=== PATIENT | female | born 1980 | race Caucasian/White ===

== ENCOUNTER → 2020-08-28 07:29 | Outpatient (CLI) | payer BC, SELFPAY ==
--- NOTE | ~2020-08-28 | US_ITS ---
EXAMINATION: US OB transvaginal DATE: 08/28/2020 07:48 INDICATION: First trimester dating TECHNIQUE: Real-time pelvic transabdominal and transvaginal ultrasound was performed. COMPARISON: No relevant recent studies FINDINGS: The uterus measures 11.3 x 5.9 x 7.8 cm. There is an intrauterine gestational sac. There i s a 1.1 x 0.7 x 1.1 cm hypoechoic area adjacent to the gestational sac. A yolk sac is identified. Fet al heart motion is identified measuring 159 beats per minute (bpm) by M-mode Doppler. The crown rump length measures 1.3 cm , which correlates with an estimated gestational age of 7 weeks and 3 da y(s) (+/-) 5 day(s). The left ovary is not visualized however no left adnexal abnormality is seen. The right ovary measure s 2.0 x 2.3 x 2.1 cm. There is no free fluid in the pelvis. IMPRESSION: 1. Live intrauterine with an estimated gestational age of 7 weeks and 3 day(s) (+/-) 5 day( s) and an estimated delivery date of 04/13/2021. 2. Small subchronic hematoma. Reviewed, dictated and finalized at location A. LOPE SEALING MACHINE OPERATOR IMPRESSION: 1. Live intrauterine with an estimated gestational age of 7 weeks and 3 day(s) (+/-) 5 day(s) and an estimated delivery date of 04/13/2021. 2. Small subchronic hematoma.
== END ==
PROVIDERS: Visit Provider Obstetrics & Gynecology Gynecology
DX: O26.21 Pregnancy care for patient with recurrent pregnancy loss, first trimester (principal); Z3A.01 Less than 8 weeks gestation of pregnancy
CPT/HCPCS: 76817

== ENCOUNTER → 2020-09-18 08:47 | Outpatient (CLI) | payer BC, SELFPAY ==
--- NOTE | ~2020-09-18 | US_ITS ---
EXAMINATION: US OB transvaginal DATE: 09/18/2020 09:13 INDICATION: Subchorionic hematoma, first trimester TECHNIQUE: Real-time pelvic transabdominal and transvaginal ultrasound was performed. COMPARISON: 08/28/2020 FINDINGS: The uterus measures 10.4 x 6.2 x 8.4 cm. There is an intrauterine gestational sac. There i s a 2.0 x 1.2 cm hypoechoic area adjacent to the gestational sac. No cardiac motion is identifi ed by M-mode Doppler. The pole measures 1.4 cm which is less than expected interval growth. The ovaries are not visualized however no adnexal abnormality is seen. There is no free fluid in the pel vis. IMPRESSION: 1. demise. Reviewed, dictated and finalized at location A. SERVICE TECHNICIAN IMPRESSION: 1. demise.
== END ==
PROVIDERS: Visit Provider Obstetrics & Gynecology Gynecology
DX: O36.8910 Maternal care for other specified fetal problems, first trimester, not applicable or unspecified (principal); O02.1 Missed abortion
CPT/HCPCS: 76817

== ENCOUNTER 2020-09-26 18:26 | Emergency (ER) | payer BC, SELFPAY ==
[2020-09-26] VITALS (11 sets, daily range): BP systolic 73–144; BP diastolic 45–93; PULSE 69–120; RESP 16–20; TEMP 36.8; O2SAT 99–100
[2020-09-26 18:53] LABS: Basophils Absolute Auto 0.1 K/mm3 (0.0-0.1); Basophils Percent Auto 0.5 % (0.2-1.2); Eosinophils Absolute Auto 0.5 K/mm3 (0-0.3); Eosinophils Percent Auto 3.8 % (0-4.4); Hematocrit 36.7 % (37.0-47.0); Hemoglobin 12.5 g/dL (12.0-15.0); Immature Granulocyte Absolute 0.03 K/mm3 (0.00-0.031); Immature Granulocyte Percent A 0.2 % (0-0.5); Lymphocytes Absolute Auto 2.46 K/mm3 (0.9-3.2); Lymphocytes Percent Auto 19.4 % (18.3-44.2); Mean Corpuscular HGB Conc 34.1 g/dl (32-36); Mean Corpuscular Hemoglobin 30.6 pg (26-34); Mean Corpuscular Volume 89.7 fl (80-100); Mean Platelet Volume 9.7 fl (7.4-10.4); Monocytes Absolute Auto 0.8 K/mm3 (0.1-0.6); Monocytes Percent Auto 6.3 % (2.6-8.5); Neutrophils Absolute Auto 8.9 K/mm3 (1.3-6.7); Neutrophils Percent Auto 69.8 % (45.5-73.1); Platelet Count Result 227 k/mm3 (150-375); Red Blood Count 4.09 M/mm3 (4.2-5.4); Red Cell Distribution Width 12.4 % (11.5-14.5); White Blood Count 12.7 K/mm3 (4.5-10.0)
--- NOTE | 2020-09-26 19:01 | ED.GENADULT ---
HPI - General Adult General Chief complaint: Vaginal Bleeding Stated complaint: possible miscarriage Time Seen by Provider: 09/26/20 18:56 Source: patient Mode of arrival: ambulatory Limitations: no limitations History of Present Illness HPI narrative: Patient is here due to excessive vaginal bleeding associated with miscarriage. Patient is a G 12 P8, this is her fourth miscarriage, all have been around 7-week jaime. She had an ultrasound last week that showed demise at approximately 7 weeks. She began having light bleeding 2 days ago, then today had a large gush that continued until she arrived here. Onset (ago): hour(s) Associated symptoms: denies other symptoms Treatments prior to arrival: none Related Data Allergies Allergy/AdvReac Type Severity Reaction Status Date / Time No Known Allergies Allergy Verified 09/26/20 21:37 Review of Systems Review of Systems: All systems reviewed & are unremarkable except as noted in HPI and below [facility] Social History Social History (Updated 09/26/20 @ 19:42 by Amanda Ledesma PA-C) Smoking status: Never smoker Alcohol intake: never Substance use: never Living arrangements: with family Gender identity (if verbalized by the patient): Female Exam Const: General: no acute distress and alert Orientation/consciousness: patient oriented x3 Resp: Effort & Inspection: normal respiratory effort Auscultation: clear to auscultation bilaterally Cardio: Rate: tachycardic Rhythm: regular rhythm GI: GI Palp: Yes Soft to palpation Auscultation: normal bowel sounds : OB/external & speculum: external exam normal, Active bleeding present, tissue present in vagina, Cervical os open and other (passed large clot, manually extracted remained of placenta.) Skin: General skin exam: normal color Psych: Mental Status: mental status grossly normal Affect: Sad affect present Course Course Emergency Course: Pt called us to the room because she felt a large clot pass. there was an approx 10X7 cm clot on the bed, the remainder was manually extracted without difficulty. POC was sent to pathology. Speculum exam: there was a small amount of bleeding and a small clot at the os. that was removed and the bleeding has slowed significantly. Approx 10 min later the patient felt faint, became hypotensive. NS bolus started. responded well to IVF. Feels much better, the bleeding has stopped. She is ready to go home. Spoke with Dr. Ha, she would like pt on Methergine 0.2 mg Q6 X 24 hrs. First dose was given here. she already has orders for serial BHCG. Vital Signs Vital signs: Vital Signs Temperature 36.8 C 09/26/20 18:29 Pulse Rate 120 H 09/26/20 18:29 Respiratory Rate 20 09/26/20 18:29 Blood Pressure 144/93 H 09/26/20 18:29 Pulse Oximetry 100 09/26/20 18:29 Temperature 36.8 C 09/26/20 18:29 Pulse Rate 120 H 09/26/20 18:29 Respiratory Rate 20 09/26/20 18:29 Blood Pressure 144/93 H 09/26/20 18:29 Pulse Oximetry 100 09/26/20 18:29 Medical Decision Making Vital Signs Vital Signs: Vital Signs Temperature 36.8 C 09/26/20 18:29 Pulse Rate 120 H 09/26/20 18:29 Respiratory Rate 20 09/26/20 18:29 Blood Pressure 144/93 H 09/26/20 18:29 Pulse Oximetry 100 09/26/20 18:29 Temperature 36.8 C 09/26/20 18:29 Pulse Rate 120 H 09/26/20 18:29 Respiratory Rate 09/26/20 18:29 Blood Pressure 144/93 H 09/26/20 18:29 Pulse Oximetry 100 09/26/20 18:29 Lab Data Result diagrams: 09/26/20 18:45 Labs: Lab Results 09/26/20 09/26/20 Range/Units 18:45 18:45 WBC 12.7 H (4.5-10.0) K/mm3 RBC 4.09 L (4.2-5.4) M/mm3 Hgb 12.5 (12.0-15.0) g/dL Hct 36.7 L (37.0-47.0) % MCV 89.7 (80-100) fl MCH 30.6 (26-34) pg MCHC 34.1 (32-36) g/dl RDW 12.4 (11.5-14.5) % Plt Count 227 (150-375) k/mm3 MPV 9.7 (7.4-10.4) fl Immature Gran % (Auto) 0.2 (0-0.5) % Neut % (Auto) 69.8 (45.5-
[2020-09-26] MEDS: SODIUM CHLORIDE 0.9% IV 1,000 ML 999 ML IV CONT (19:35)
--- NOTE | 2020-09-26 19:37 | PC.NURSE ---
Patient became pale and hypotensive. KATEY notified, orders received for bolus.
[2020-09-26] MEDS: METHYLERGONOVINE MALEATE 0.2 MG TABLET PO (21:04)
[2020-09-26] MEDS: SODIUM CHLORIDE 0.9% IV 500 ML 999 ML IV CONT (21:26)
== END 2020-09-26 22:13 | disposition home or self-care (01) ==
PROVIDERS: Emergency Provider Emergency Medicine
DX: O03.9 Complete or unspecified spontaneous abortion without complication (principal)
CPT/HCPCS: 36415; 84702; 85025; 85461; 88305; 96360; 99284; A9270; J7030; J7040

== ENCOUNTER 2020-09-27 17:24 | Day surgery (SDC) | payer BC, SELFPAY ==
[2020-09-27] VITALS (12 sets, daily range): BP systolic 107–142; BP diastolic 51–76; PULSE 78–119; RESP 16–22; TEMP 36.4–36.6; O2SAT 98–100
--- NOTE | ~2020-09-27 | US_ITS ---
US OB <=14 wk fetus w TV 09/27/2020 19:04 Indication: Evaluate for retained products of conception Procedure: High-resolution Limited obstetrical ultrasound using transabdominal and transvaginal techn ique Comparison: Ultrasound dated 09/18/2020 Findings: The endometrium is thickened and heterogeneous with associated internal vascularity. Endome trium measures 3.5 cm. Internal debris is mobile. Uterus measures 11.7 x 6.1 x 5.7 cm. Ovaries are un remarkable. Impression: 1: Thickened heterogeneous endometrium measuring up to 3.5 cm with internal vascularity and heterogen eous mobile endometrial debris. Findings compatible with retained products of conception. Reviewed, dictated and finalized at location A. STEWARD/STEWARDESS Impression: 1: Thickened heterogeneous endometrium measuring up to 3.5 cm with internal vas cularity and heterogeneous mobile endometrial debris. Findings compatible with retained products of conception.
--- NOTE | 2020-09-27 17:59 | ED.FEMALEGU ---
HPI - Female Genitourinary General Chief complaint: CORDUROY BRUSHER OPERATOR Stated complaint: Vaginal Bleeding Time Seen by Provider: 09/27/20 17:57 Source: patient Mode of arrival: ambulatory Limitations: no limitations History of Present Illness HPI Narrative: 40-year-old female She is a grandmultip On September 02 she had a ultrasound showing a viable but some time between then and September 18 there was a demise which was documented with a subsequent ultrasound Last night she started having heavy vaginal bleeding and was seen in the ED A single dose of Methergine was given and after consultation with CORDUROY BRUSHER OPERATOR she was discharged home At home she continue with bleeding which she described as being like a normal period She could not get Methergine from the pharmacy until 130 and then after taking that she had heavy bleeding and passed a grapefruit sized clot She really does not have pain and is not very lightheaded Here she again passed a similar sized clot and ultrasound and in the approximately 30 minutes since returning from there has saturated another pad so is continuing to bleed elicited complaint: vaginal bleeding Vaginal bleeding: heavy, clots and POC/tissue Related Data Allergies Allergy/AdvReac Type Severity Reaction Status Date / Time No Known Allergies Allergy Verified 09/27/20 17:45 Review of Systems Review of Systems: All systems reviewed & are unremarkable except as noted in HPI and below Constitutional: Constitutional: Denies chills, Denies fever(s), Denies headache(s) and Denies weakness Eyes: Eyes: Reports no additional eye complaints and Denies change in vision ENT: Denies headache(s), Denies epistaxis, Denies nasal congestion and Denies sore throat Cardiovascular: Cardiovascular: Denies chest pain, Denies leg edema, Denies palpitations and Denies dyspnea Respiratory: Respiratory: Denies cough, Denies dyspnea and Denies wheezing Gastrointestinal: Gastrointestinal: Denies abdominal pain, Denies diarrhea, Denies nausea and Denies vomiting Genitourinary: Genitourinary: Reports abnormal vaginal bleeding, Denies hematuria, Denies urinary frequency, Denies dysuria and Denies pelvic pain Musculoskeletal: Musculoskeletal: Denies deformity, Denies arthralgias, Denies joint swelling, Denies muscle weakness and Denies numbness Integumentary/Breasts: Skin/Breast: Denies rash and Denies wounds Neurologic: Denies headache(s), Denies focal weakness, Denies numbness and Denies weakness Psychiatric: Psychiatric: Reports no additional psychiatric complaints Endocrine: Endocrine: Denies fatigue and Denies palpitations Hematologic/Lymphatic: Hematologic/Lymphatic: Denies easy bleeding and Denies easy bruising Allergic/Immunologic: Allergic/Immunologic: Denies wheezing PMFSH Social History Social History (Updated 09/26/20 @ 19:42 by Amanda Ledesma PA-C) Smoking status: Never smoker Alcohol intake: never Substance use: never Gender identity (if verbalized by the patient): Female Exam Const: General: no acute distress, well developed, alert and awake Nutritional Appearance: well nourished Orientation/consciousness: patient oriented x3 (alert) Limitations: no limitations HENMT: Head: normocephalic and atraumatic Ears: external ears normal General nose exam: No nasal discharge present and no epistaxis Face and sinus: face symmetric Eyes: Conjunctivae: conjunctivae normal Sclera: sclerae normal EOM: EOMs intact bilaterally Neck: Neck: normal visual inspection, supple and no JVD Chest: Chest palpation & inspection: deferred Resp: Effort & Inspection: normal respiratory effort and not tachypneic Auscultation: other (BS =) Cardio: Heart sounds: no gallops GI: Inspection: normal to inspection and non-distended GI Palp: Yes Soft to palpation, No Tenderness to palpation present (GI), No Guarding due to palpation present (GI) and No Rebound tenderness present : Speculum Exam - Vagina: vag
[2020-09-27] MEDS: LACTATED RINGERS 1,000 ML 999 ML IV CONT (18:32)
[2020-09-27 18:41] LABS: Basophils Percent Auto 0.3 % (0.2-1.2); Eosinophils Absolute Auto 0.2 K/mm3 (0-0.3); Eosinophils Percent Auto 1.5 % (0-4.4); Hematocrit 29.5 % (37.0-47.0); Hemoglobin 9.7 g/dL (12.0-15.0); Immature Granulocyte Absolute 0.03 K/mm3 (0.00-0.031); Immature Granulocyte Percent A 0.3 % (0-0.5); Lymphocytes Absolute Auto 1.81 K/mm3 (0.9-3.2); Mean Corpuscular HGB Conc 32.9 g/dl (32-36); Mean Corpuscular Hemoglobin 30.8 pg (26-34); Mean Corpuscular Volume 93.7 fl (80-100); Monocytes Absolute Auto 0.5 K/mm3 (0.1-0.6); Monocytes Percent Auto 4.7 % (2.6-8.5); Neutrophils Absolute Auto 8.8 K/mm3 (1.3-6.7); Neutrophils Percent Auto 77.2 % (45.5-73.1); Platelet Count Result 208 k/mm3 (150-375); Red Blood Count 3.15 M/mm3 (4.2-5.4); Red Cell Distribution Width 12.6 % (11.5-14.5); White Blood Count 11.3 K/mm3 (4.5-10.0)
--- NOTE | 2020-09-27 20:01 | PC.NURSE ---
Report called to PACU
--- NOTE | 2020-09-27 20:21 | P.HP_ITS ---
H&P: HPI History of Present Illness Date/Time: 09/27/20 20:21 Chief Complaint: bleeding large clots Narrative: Brian Menjivar is a 40 year old [id number] with current SAB. Patient seen in ER yesterday for bleeding for known SAB. Patient d/cd home with methergine and bleeding under control. Patient had a delay in getting methergine dose and bleeding increased today passing large clots and feeling weak. Patient denies seeing any tissue. ER doctor stated evacuated orange size clots. ultrasound shows retained products of conception. [facility] Social History Social History Smoking status: Never smoker Alcohol intake: never Substance use: never Gender identity (if verbalized by the patient): Female Meds Home Medications and Allergies Home Medications Medication Instructions Recorded Confirmed Type methylergonovine [Methergine] 0.2 mg PO QID 1 Days #3 tablet 09/26/20 Rx Allergies Allergy/AdvReac Type Severity Reaction Status Date / Time No Known Allergies Allergy Verified 09/27/20 17:45 Vital Signs Vital Signs - 24 hr 09/27/20 17:27 09/27/20 19:16 09/27/20 19:20 Temperature 36.5 C Pulse Rate 114 H 96 96 Respiratory Rate 19 Blood Pressure 141/71 H 142/64 H 129/76 Pulse Oximetry 98 09/27/20 19:21 Temperature Pulse Rate 119 H Respiratory Rate Blood Pressure 114/68 Pulse Oximetry Exam : Speculum Exam - Vagina: vaginal bleeding and tissue present in vagina Speculum Exam - Cervix: Cervical os open Other: cervix 4 cm dilated with tissue present and clots. moderate bleeding. clots in toilet. H&P: Results Labs Labs: Short CBC 09/27/20 Range/Units 18:27 WBC 11.3 H (4.5-10.0) K/mm3 Hgb 9.7 L (12.0-15.0) g/dL Hct 29.5 L (37.0-47.0) % Plt Count 208 (150-375) k/mm3 Assessment and Plan Assessment and plan (1) Incomplete miscarriage: Code(s): O03.4 - Incomplete spontaneous without complication Status: Acute Assessment and Plan: Incomplete - will proceed with a suction d and c. Risk and benefits reviewed with patient in detail. (2) demise, less than 22 weeks: Status: Acute
--- NOTE | 2020-09-27 20:22 | WPDANESEPPF ---
Anes - Initial Pre Proc Eval Procedure: Operation Date: 09/27/20 20:45 Proposed Procedures p D&C Suction and Sharp - Jack Mott MD Date/Time: 09/27/20 20:22 Surgeon: Jack Mott MD Pre Op Diagnosis: Vaginal Bleeding Patient Data Age: 40 Gender: F Height: 1.6 m Weight: 86.1 kg Last Vital Signs Temp 36.5 C 09/27/20 17:27 Pulse 119 H 09/27/20 19:21 Resp 19 09/27/20 17:27 BP 114/68 09/27/20 19:21 Pulse Ox 98 09/27/20 17:27 Allergies Allergy/AdvReac Type Severity Reaction Status Date / Time No Known Allergies Allergy Verified 09/27/20 17:45 Home Medications Medication Instructions Recorded Confirmed Type methylergonovine [Methergine] 0.2 mg PO QID 1 Days #3 tablet 09/26/20 Rx Laboratory Tests 09/27/20 18:27 WBC 11.3 K/mm3 H K/mm3 (4.5-10.0) RBC 3.15 M/mm3 L M/mm3 (4.2-5.4) Hgb 9.7 g/dL L g/dL (12.0-15.0) Hct 29.5 % L % (37.0-47.0) MCV 93.7 fl fl (80-100) MCH 30.8 pg pg (26-34) MCHC 32.9 g/dl g/dl (32-36) RDW 12.6 % % (11.5-14.5) Plt Count 208 k/mm3 k/mm3 (150-375) MPV 10.0 fl fl (7.4-10.4) Immature Gran % (Auto) 0.3 % % (0-0.5) Neut % (Auto) 77.2 % H % (45.5-73.1) Lymph % (Auto) 16.0 % L % (18.3-44.2) Sharkey % (Auto) 4.7 % % (2.6-8.5) Eos % (Auto) 1.5 % % (0-4.4) Baso % (Auto) 0.3 % % (0.2-1.2) Lymph # (Auto) 1.81 K/mm3 K/mm3 (0.9-3.2) Sharkey # (Auto) 0.5 K/mm3 K/mm3 (0.1-0.6) Eos # (Auto) 0.2 K/mm3 K/mm3 (0-0.3) Baso # (Auto) 0.0 K/mm3 K/mm3 (0.0-0.1) Abs Immat Gran (auto) 0.03 K/mm3 K/mm3 (0.00-0.031) Absolute Neuts (auto) 8.8 K/mm3 H K/mm3 (1.3-6.7) Absolute Nucleated RBC 0.0 K/mm3 K/mm3 (0.0-0.012) Nucleated RBC % 0.0 % % (0.0-0.2) Patient hx anesthesia problems: none Family hx anesthesia problems: none [facility] Social History Social History (Updated 09/26/20 @ 19:42 by Amanda Ledesma PA-C) Smoking status: Never smoker Alcohol intake: never Substance use: never Gender identity (if verbalized by the patient): Female Anes - Eval Final PreProcedure Day of Procedure 09/27/20 20:22 Patient weight: obese Heart: regular rate and rhythm Lungs: clear to auscultation and normal air movement Airway: Mallampati scale class II Neurological: alert and oriented Last oral intake: 6 hours ([place]) ASA classification: II Emergent: yes Anesthetic plan: proceed Anesthesia type and monitoring: general ETT and standard monitoring Informed Consent: The patient's anesthetic plan and its attendant risks and benefits were discussed with the patient/family/POA. Questions were solicited and answers provided to the satisfaction of the patient/family/POA.
[2020-09-27] MEDS: LIDOCAINE HCL 1% LOCAL INJ 10 ML VIAL INFILTRATE (21:16)
--- NOTE | 2020-09-27 21:25 | P.OP_ITS ---
Procedure Note - Detailed Date of procedure: 09/27/20 Pre-op diagnosis: Vaginal Bleeding Post-op diagnosis: same Procedure performed: suction dilation and curettage Description of procedure: The patient was taken to the operating room and placed in a dorsal lithotomy position. A bivalve speculum was placed into the vagina. Anterior lip of the cervix was grasped with a single-tooth tenaculum cervix was injected at the 2 and 10 o'clock position with 5cc of lidocaine bilaterally. Uterus was sounded to 10cm and a curved suction. A 9mm was inserted into the vagina and suction device activated. Three passes were obtained. A sharp curet tage was performed in all 4 quadrants. And the suction device was re- inserted and passed x2. The tenaculum was removed hemostasis was assured and a bivalve speculum was removed sponge lap and needle counts were correct x2 Anesthesia: MAC and local Surgeon: Jack Mott MD Estimated blood loss (mL): 100 Drains: No Packing: No Pathology: yes Complications: None Condition: stable Disposition: observation Findings: 2 cm dilated with products of conception present.
[2020-09-27] MEDS: LACTATED RINGERS 1,000 ML 30 ML IV CONT (21:28)
--- NOTE | 2020-10-18 11:39 | WPDHPUPDATE1 ---
History and Physical Update Update Date/Time: 10/18/20 11:39 History and Physical has been reviewed, including an updated exam of the patient. There are NO changes in the patient's condition. Risks, benefits, and alternatives have been discussed and questions answered. Patient agrees to proceed with procedure.
== END 2020-09-27 23:10 | disposition home or self-care (01) ==
LOC: ANHED 17:57 → ANHSURGERY 20:07
PROVIDERS: Emergency Provider Emergency Medicine; Visit Provider Obstetrics & Gynecology
PROC: (CPT 59812; principal; 2020-09-27 20:45)
DX: O03.4 Incomplete spontaneous abortion without complication (principal)
CPT/HCPCS: 59812; 36415; 76801; 76817; 85025; 88305; 96360; 99285; A9270; J0330; J1100; J2210; J2250; J2405; J2704; J3010; J7120

== ENCOUNTER 2021-04-29 09:56 | Outpatient (CLI) | payer OTHER, SELFPAY ==
--- NOTE | ~2021-04-29 | US_ITS ---
EXAMINATION: US OB <= 14 weeks fetus DATE: 04/29/2021 10:33 INDICATION: Spotting during first trimester TECHNIQUE: Real-time pelvic transabdominal ultrasound was performed. COMPARISON: None. FINDINGS: The uterus measures 12.2 x 7.1 x 5.0 cm. There is an intrauterine gestational sac. There i s a hypoechoic area adjacent to the gestational sac which measures 2.3 x 0.7 cm. A yolk sac is identi fied. heart motion is identified measuring 116 beats per minute (bpm) by M-mode Doppler. The fe crystal crown rump length measures 6 mm , which correlates with an estimated gestational age of 6 weeks a nd 2 day(s) (+/-) 4 day(s). The left ovary is not visualized however no left adnexal abnormality is seen. The right ovary measure s 2.7 x 2.0 x 2.2 cm. There is normal vascular flow in the right ovary. There is no free fluid in the pelvis. IMPRESSION: 1. Live intrauterine with an estimated gestational age of 6 weeks and 2 day(s) (+/-) 4 day( s) and an estimated delivery date of 12/21/2021. 2. Moderate-sized subchorionic hemorrhage. Reviewed, dictated and finalized at location A. IMPRESSION: 1. Live intrauterine with an estimated gestational age of 6 weeks and 2 day(s) (+/-) 4 day(s) and an estimated delivery date of 12/21/2021. 2. Moderate-sized subchorionic hemorrhage.
== END 2021-04-29 09:57 | disposition home or self-care (01) ==
LOC: ANHIMG 10:04
PROVIDERS: Visit Provider Obstetrics & Gynecology Gynecology
DX: O26.21 Pregnancy care for patient with recurrent pregnancy loss, first trimester (principal); Z3A.01 Less than 8 weeks gestation of pregnancy; O36.8911 Maternal care for other specified fetal problems, first trimester, fetus 1
CPT/HCPCS: 76801

== ENCOUNTER → 2021-05-16 15:18 | Outpatient (CLI) | payer OTHER, SELFPAY ==
--- NOTE | ~2021-05-16 | US_ITS ---
EXAMINATION: US transvaginal DATE: 05/16/2021 15:38 INDICATION: History of miscarriage. Spotting. TECHNIQUE: Real-time transabdominal and transvaginal obstetric ultrasound. FINDINGS: Comparison ultrasound dated 04/29/2021 The uterus measures 8.8 x 5.6 x 6.9 cm. There is an intrauterine gestational sac containing a p ole which corresponds to a 7 week 0 day gestation. No heart motions detected, consistent with f etal demise. Ovaries are not visualized. IMPRESSION: 1. demise. Reviewed, dictated and finalized at location A. IMPRESSION: 1. demise.
== END ==
PROVIDERS: Visit Provider Obstetrics & Gynecology Gynecology
DX: O26.851 Spotting complicating pregnancy, first trimester (principal)
CPT/HCPCS: 76830

== ENCOUNTER → 2022-09-07 13:19 | Outpatient (CLI) | payer OTHER, SELFPAY ==
--- NOTE | ~2022-09-07 | US_ITS ---
EXAMINATION: US OB <= 14 weeks fetus DATE: 09/07/2022 13:42 INDICATION: Subchorionic hematoma during first trimester TECHNIQUE: Real-time pelvic ultrasound utilizing both a transvaginal and transabdominal probe was pe rformed. The interpreting radiologist was not present for the study. COMPARISON: None FINDINGS: The uterus measures 11.8 x 7.1 x 7.4 cm. There is an intrauterine gestational sac. A yolk sac and fe crystal pole are identified. The crown rump length measures 2.2 cm, which correlates with an estimated ge stational age of 8 weeks and 6 days. heart motion is identified measuring 172 beats per minute (bpm) by M-mode Doppler. 3.4 x 2.2 x 0.9 cm hypoechoic subchorionic hematoma along the right side of the gestational sac. The bilateral ovaries are not visualized. There is no free fluid in the pelvis. IMPRESSION: 1. Single living fetus with heart rate of 172 bpm. 2. Gestational age by ultrasound of 8 weeks 6 day(s) +/- 6 day(s) with ultrasound estimated date of delivery ([facility]) of 04/13/2023. 3. 3.4 x 2.2 x 0.9 cm subchorionic hematoma. Reviewed, dictated and finalized at location A. OSOFT ARCHITECT IMPRESSION: 1. Single living fetus with heart rate of 172 bpm. 2. Gestational age by ultrasound of 8 weeks 6 day(s) +/- 6 day(s) with ultraso und estimated date of delivery ([facility]) of 04/13/2023. 3. 3.4 x 2.2 x 0.9 cm subchorionic hematoma.
== END ==
PROVIDERS: PCP Obstetrics & Gynecology Gynecology; Visit Provider Obstetrics & Gynecology Gynecology
DX: O20.8 Other hemorrhage in early pregnancy (principal); Z3A.08 8 weeks gestation of pregnancy
CPT/HCPCS: 76801

== ENCOUNTER → 2022-10-04 09:42 | Outpatient (CLI) | payer OTHER, SELFPAY ==
--- NOTE | ~2022-10-04 | US_ITS ---
Pelvic ultrasound. Clinical History: First trimester , subchorionic hemorrhage Technique: Realtime transabdominal and transvaginal scanning of the pelvis was performed. Color flow Doppler and Doppler spectral analysis were performed. COMPARISON: 09/07/2022 Findings: The uterus is anteverted, and contains an intrauterine gestation. heart rate is 158 b pm. No subchorionic hemorrhage identified. The right ovary measures 3.7 x 3.1 x 1.7 cm. No significant right ovarian or adnexal mass is seen. The left ovary measures 4.2 x 3.3 x 3.7 cm. No significant left ovarian or adnexal mass is seen. There is no evidence of free fluid in the cul de sac. Impression: Live intrauterine gestation. heart rate is 158 bpm. No subchorionic hemorrhage identified. Reviewed, dictated and finalized at [facility]. WRAPPER Impression: Live intrauterine gestation. heart rate is 158 bpm. No subchorionic hemor rhage identified.
== END ==
PROVIDERS: PCP Obstetrics & Gynecology Gynecology; Visit Provider Obstetrics & Gynecology Gynecology
DX: O36.8910 Maternal care for other specified fetal problems, first trimester, not applicable or unspecified (principal)
CPT/HCPCS: 76815

== ENCOUNTER 2023-03-08 10:00 | Observation (INO) | payer OTHER, SELFPAY ==
[2023-03-08] VITALS (10 sets, daily range): BP systolic 123–149; BP diastolic 71–84; PULSE 90–100; BMI 42.5
--- NOTE | 2023-03-08 11:25 | OBADM ---
This patient, Brian Menjivar, admitted to the OB room OB Post 116 for observation. Patient/family oriented to hospital policies and general routines including ID bracelet, bed and alarms, visiting hours, pain management, procedures, bathroom and other care routines, personal items, smoking policy, room service/diet, and visiting hours. Patient/Family are encouraged to report perceived risks to care and to ask questions if they do not understand what they are told or what they should do.
--- NOTE | 2023-03-08 21:55 | PM.OBTRLD ---
OB - Triage/Final Diagnosis Visit Information Reason for evaluation: other ( preeclampsia with variable decelerations) Comments/Additional reasons for admission: I have assessed the risk for this patient, Brian Menjivar, and determined that she would benefit from observation care. Evaluation Vital signs: Vital Signs - 24 hr 03/08/23 10:30 03/08/23 11:00 03/08/23 11:30 Pulse Rate 94 92 97 Blood Pressure 133/72 138/78 140/74 03/08/23 12:00 03/08/23 12:30 03/08/23 13:00 Pulse Rate 99 91 92 Blood Pressure 149/84 H 128/71 131/73 03/08/23 13:30 03/08/23 14:01 03/08/23 14:30 Pulse Rate 90 100 91 Blood Pressure 139/74 123/73 135/71 03/08/23 15:00 Pulse Rate 96 Blood Pressure 140/74
== END 2023-03-08 15:15 | disposition other institution (70) ==
PROVIDERS: Admitting Provider Obstetrics & Gynecology Gynecology; Visit Provider Obstetrics & Gynecology Gynecology
DX: O14.93 Unspecified pre-eclampsia, third trimester (principal); O36.8330 Maternal care for abnormalities of the fetal heart rate or rhythm, third trimester, not applicable or unspecified; Z3A.34 34 weeks gestation of pregnancy
CPT/HCPCS: G0378; G0379

== ENCOUNTER 2023-03-26 04:57 | Inpatient (IN) | payer OTHER, SELFPAY ==
[2023-03-26] VITALS (73 sets, daily range): BP systolic 104–142; BP diastolic 54–113; PULSE 76–102; TEMP 36.1–36.6
--- NOTE | 2023-03-26 04:57 | LDADM ---
This patient, Brian Menjivar, was admitted to Labor/Delivery/Recovery 103 on 03/26/23 at 04:57. Plans for labor, pain management and were discussed with patient. Patient/family oriented to hospital policies and general routines including ID bracelet, bed and alarms, visiting hours, pain management, procedures, bathroom and other care routines, personal items, smoking policy, room service/diet and guest tray routines, infant security routines, and visiting hours. Patient/Family are encouraged to report perceived risks to care and to ask questions if they do not understand what they are told or what they should do. See OBIX for further documentation.
[2023-03-26 05:48] LABS: Basophils Percent Auto 0.3 % (0.2-1.2); Eosinophils Absolute Auto 0.3 K/mm3 (0-0.3); Eosinophils Percent Auto 2.6 % (0-4.4); Hematocrit 34.8 % (37.0-47.0); Hemoglobin 11.6 g/dL (12.0-15.0); Immature Granulocyte Absolute 0.09 K/mm3 (0.00-0.031); Immature Granulocyte Percent A 0.8 % (0-0.5); Lymphocytes Absolute Auto 2.55 K/mm3 (0.9-3.2); Lymphocytes Percent Auto 22.9 % (18.3-44.2); Mean Corpuscular HGB Conc 33.3 g/dl (32-36); Mean Corpuscular Hemoglobin 30.6 pg (26-34); Mean Corpuscular Volume 91.8 fl (80-100); Mean Platelet Volume 10.4 fl (7.4-10.4); Monocytes Absolute Auto 0.7 K/mm3 (0.1-0.6); Monocytes Percent Auto 6.2 % (2.6-8.5); Neutrophils Absolute Auto 7.5 K/mm3 (1.3-6.7); Neutrophils Percent Auto 67.2 % (45.5-73.1); Platelet Count Result 271 k/mm3 (150-375); Red Blood Count 3.79 M/mm3 (4.2-5.4); Red Cell Distribution Width 14.3 % (11.5-14.5); White Blood Count 11.1 K/mm3 (4.5-10.0)
[2023-03-26 05:53] LABS: Alanine Aminotransferase 17 U/L (6-35); Albumin Level 3.5 g/dL (3.5-5.1); Alkaline Phosphatase 128 U/L (38-126); Anion Gap 4 mmol/L (8-16); Aspartate Amino Transferase 22 U/L (14-36); Bilirubin,Total 0.4 mg/dL (0.2-1.3); Blood Urea Nitrogen 9 mg/dL (7-17); Calcium 8.5 mg/dL (8.4-10.2); Carbon Dioxide 22 mmol/L (22-30); Chloride 108 mmol/L (98-107); Estimated Glomerular Filt Rate > 60; Glucose 93 mg/dL (65-110); Potassium 3.4 mmol/L (3.4-5.0); Sodium 134 mmol/L (137-145)
[2023-03-26] MEDS: AMPICILLIN 2 GM/NS 100 ML 2 GM/100 ML BAG IVPB (05:53)
[2023-03-26] MEDS: LACTATED RINGERS 1,000 ML 125 ML IV CONT ×2 (05:56→18:18)
[2023-03-26] MEDS: OXYTOCIN 30 UNITS/NS 500 ML 30 UNITS/500 ML BAG IV CONT (06:16)
[2023-03-26] MEDS: AMPICILLIN 1 GM/NS 50 ML 1 GM/50 ML BAG IVPB ×3 (10:04→18:15)
--- NOTE | 2023-03-26 12:21 | WPDOBADMIT ---
Obstetrics - Admit Note Admission Note: record reviewed. No pertinent additions to the history and/or any subsequent changes in the physical findings that are not consistent with the expected course of the were found. Additions to the history and/or subsequent changes in the physical findings follow. Here at 37 wks for MIL for preeclampsia. BP stable. No symptoms. Cervix 3/50/-2 AROM with clear fluid. FHTs category I
[2023-03-26 14:19] LABS: Rapid Plasma Reagin Non-Reactive (NonReactive)
--- NOTE | 2023-03-26 22:07 | PM.OBPRVD ---
OB - Delivery Note Procedure Delivery date: 03/26/23 Procedure: by RN into bed 30 sec before my arrival in the room Events: Preeclampsia w/o severe features Induction method: AROM and Per Pitocin Protocol Delivery monitor: External FHT and Internal Uterine Route of delivery: Laceration Description: Periurethral and Perineal - 1st Degree Delivery repair: vicryl (3-0) Specimen: Yes (placenta) Quantitative Blood Loss (ml): 100 Anesthesia type: Local Disposition: Floor Narrative: Called for update and called back by RN at 910pm with patient 5-6 cm stretchy and starting to feel contractions more. Called as I was pulling into drive at 950 pm by RN stating patient anterior rim and being delivered by RN. On my arrival to the room, infant being placed on maternal abdomen. [place] Baby Date of : 03/26/23 Weeks of gestation at delivery: 37 gender: Female Weight (pounds): 6 Weight (ounces): 15 presentation: vertex Placenta delivery description: Spontaneous (marginal instertion with cord avulsing as it was delivering) Cord Vessel Description: 3 Vessels and Nuchal Cord score one minute: 7 score five minutes: 9
--- NOTE | 2023-03-26 22:12 | PM.OBDSVD ---
DS: Admitting Diagnosis Discharge Date 03/28/23 Admitting Diagnosis IUP 37 wks with preeclampsia MIL DS: Discharge Diagnosis Discharge Diagnosis (1) Preeclampsia: Code(s): O14.90 - Unspecified pre-eclampsia, unspecified trimester Status: Acute (2) (normal spontaneous vaginal delivery): Code(s): O80 - Encounter for full-term uncomplicated delivery Status: Acute OB - DS: Summary OB Procedures : NST, PIH Mgmt and Ultrasound OB Procedures Intrapartum: Spontaneous Vag Delivery (tray delivery aide) OB Procedures: : None Peripartum Data Infant Delivery Method: Natural Vaginal Laceration Description: Periurethral and Perineal - 1st Degree complications: none Status at Discharge Functional status at discharge: independent ambulation Overall status at discharge: patient is progressing back to baseline Time Spent with Patient Time attestation: Total time spent providing and/or coordinating discharge services: DS: Data Data Completed and Pending Labs on day of discharge: Labs from last 24 hours 03/26/23 05:38 WBC 11.1 H RBC 3.79 L Hgb 11.6 L Hct 34.8 L MCV 91.8 MCH 30.6 MCHC 33.3 RDW 14.3 Plt Count 271 MPV 10.4 Immature Gran % (Auto) 0.8 H Neut % (Auto) 67.2 Lymph % (Auto) 22.9 [place] % (Auto) 6.2 Eos % (Auto) 2.6 Baso % (Auto) 0.3 Lymph # (Auto) 2.55 [place] # (Auto) 0.7 H Eos # (Auto) 0.3 Baso # (Auto) 0.0 Abs Immat Gran (auto) 0.09 H Absolute Neuts (auto) 7.5 H Absolute Nucleated RBC 0.0 Nucleated RBC % 0.0 Sodium 134 L Potassium 3.4 Chloride 108 H Carbon Dioxide 22 Anion Gap 4 L BUN 9 Creatinine 0.40 L Estim Creat Clear Calc Not Reportable Estimated GFR > 60 Glucose 93 Uric Acid 4.0 Calcium 8.5 Total Bilirubin 0.4 AST 22 ALT 17 Alkaline Phosphatase 128 H Total Protein 7.0 Albumin 3.5 RPR Non-reactive Blood Type AB Positive Antibody Screen Negative Discharge Plan Discharge Attending physician on discharge: Maritza Ha Discharging Clinician: Cynthia Hooker Anticipated Discharge Date/Time: 03/28/23 22:13 Patient Disposition: Home, Self-Care Activity: may shower and pelvic rest Diet: regular Wound Care Instructions: follow printed instructions Discharge Instructions: Continue taking your vitamin and any other supplements as previously directed (Examples: Iron, Vitamin D). You may take Tylenol 1000mg over the counter every 6 hours as needed for pain. Do not exceed 4000mg of Tylenol daily. You may continue using tucks pads and dermoplast spray if needed for a few more days. Education: Mom and Baby Guide Given to: Mother Follow-Up: Call your delivering provider's office for an appointment to be seen in: in 1 week for blood pressure check and then again in 6 weeks Mom and baby should come to the [facility] for the follow-up appointment. Appointment Date/Time: March 30, 2023 at 11:00 am What to expect at your follow-up visit: Blood Pressure Check Physical Assessment Call [phone] if you are unable to keep your appointment time. BREAST CARE: * Wear a snug supportive bra. * For engorgement discomfort: Breast Feeding: * Apply warm moist washcloths * Express milk as needed to relieve engorgement * Wear loose clothing * For sore nipples: * Identify correct latch-on * Apply warm moist washcloths before and after nursing * Air dry nipples after nursing * May apply Lansinoh cream to nipples EPISIOTOMY/PERINEAL CARE: * Until bleeding stops, use your danielle bottle after urinating * Change your pad frequently throughout the day * You may take sitz baths several times a day (fill your bathtub with warm water and soak for 20 minutes.) Do NOT bathe in the water * No tub baths until seen by your physician - You may shower ACTIVITY: * Rest as much as possible. * Do
[2023-03-26] MEDS: OXYTOCIN 30 UNITS/NS 500 ML 30 UNITS/500 ML BAG 125 UNITS IV CONT (22:25)
[2023-03-26] MEDS: IBUPROFEN 600 MG TABLET PO (23:36)
[2023-03-27] VITALS (9 sets, daily range): BP systolic 101–133; BP diastolic 56–72; PULSE 77–87; RESP 14–18; TEMP 36.2–37.2; O2SAT 96–99
[2023-03-27 04:03] LABS: Hematocrit 32.4 % (37.0-47.0); Hemoglobin 10.7 g/dL (12.0-15.0)
[2023-03-27] MEDS: IBUPROFEN 600 MG TABLET PO ×4 (05:29→23:55)
--- NOTE | 2023-03-27 08:07 | PM.OBPNVD ---
OB - PN: Subj Subjective Date/time seen: 03/27/23 08:07 Patient comments: no complaints and pain well controlled baby status: doing well OB - PN: Obj Data Labs 03/27/23 03:47 03/26/23 05:38 Labs: Laboratory Results - last 24 hr 03/26/23 03/27/23 05:38 03:47 Hgb 10.7 L Hct 32.4 L Uric Acid 4.0 RPR Non-reactive OB - PN A/P Plan day: 1 Plan: routine care Comments: No PIH sx. Good BP. No diuresis yet Time Spent With Patient Time: Total time spent is greater than 50% in coordination of care (as documented) at patient's floor/unit and/or counseling patient:
[2023-03-27] MEDS: MULTIVIT/MIN/PREN/FOL AC/IRON TABLET 1 TAB PO (08:25)
[2023-03-27] MEDS: DOCUSATE SODIUM 100 MG CAPSULE PO (08:25)
[2023-03-27] MEDS: LANOLIN (LANSINOH) 7.5 GM CREAM 1 APPLIC TOPICAL (08:26)
--- NOTE | 2023-03-27 15:47 | PC.NURSE ---
1450 - Mother verbalizes she is able to independently latch with appropriate positioning/alignment. She denies any nipple discomfort and is responsively . Infant is currently meeting outcomes for weight, output, jaundice and feeding frequencies of 8-12 times in 24 hours. Mother declines any additional assistance/education at this time. Mother is encouraged to call for assistance if her doesn?t latch or there is discomfort with latching. Mother voiced understanding of information shared.
--- NOTE | 2023-03-27 18:53 | PC.NURSE ---
Patient viewed the discharge video Mother & Baby Care, The First Two Weeks . Patient was given the opportunity and encouraged to ask questions. Patient verbalized understanding of information shared and has been given the mother/baby guide for home reference.
[2023-03-28 05:50] VITALS: BP 119/73; PULSE 72
[2023-03-28] MEDS: IBUPROFEN 600 MG TABLET PO ×2 (05:55→13:19)
--- NOTE | 2023-03-28 07:58 | P.PNOB_ITS ---
OB - PN: Subj Subjective Date/time seen: 03/28/23 07:52 Interval history: PPD 2 from . Doing well. Minimal discomfort while nursing. Patient comments: pain well controlled [place] baby status: doing well and nursing well [place] feeding status: exclusively breast feeding OB - PN: Obj Data Labs 03/27/23 03:47 03/26/23 05:38 OB - PN A/P Assessment and Plan (1) (normal spontaneous vaginal delivery): Code(s): O80 - Encounter for full-term uncomplicated delivery Status: Acute (2) Preeclampsia: Code(s): O14.90 - Unspecified pre-eclampsia, unspecified trimester Status: Acute (3) Mother currently breast-feeding: Code(s): Z39.1 - Encounter for care and examination of lactating mother Status: Acute Plan day: 2 Plan: discharge home Time Spent With Patient Time: Total time spent is greater than 50% in coordination of care (as documented) at patient's floor/unit and/or counseling patient: Review of Systems Review of Systems: All systems reviewed & are unremarkable except as noted in HPI and below Exam Narrative: Alert and oriented. Mood is pleasant and cooperative. Urinating without difficulty. Denies passing any large clots. Perineum with minimal edema. Fundus firm and below umbilicus. Const: General: cooperative, healthy appearing, no acute distress and alert Orientation/consciousness: patient oriented x3 Limitations: no limitations Resp: Effort & Inspection: normal respiratory effort Auscultation: clear to auscultation bilaterally Cardio: Rate: regular rate GI: Inspection: normal to inspection Neuro: General: patient oriented x3 Extrem: General: normal to inspection Psych: Appearance: grossly normal Mental Status: mental status grossly normal Affect: normal affect Thought process: Normal thought process present
[2023-03-28 08:20] VITALS: BP 133/78; PULSE 79; RESP 16; TEMP 36.8; O2SAT 99
[2023-03-28] MEDS: DOCUSATE SODIUM 100 MG CAPSULE PO (08:25)
[2023-03-28] MEDS: MULTIVIT/MIN/PREN/FOL AC/IRON TABLET 1 TAB PO (08:25)
--- NOTE | 2023-03-28 10:53 | PM.OBPNLAB ---
Pain Control Date/time seen: 03/28/23 10:40 Pain control: tolerating well Pelvic Exam Dilation (cm): 5 Amniotic membrane status: Ruptured Contractions Monitor mode: Internal Contraction frequency: 4 Contraction pattern: Regular Status status: Category ll Assessment and Plan Pitocin rate (mU/min): 0 Plan: continuous present management Comments: Community Relations Advisor called to evaluate presentation. SVE performed. Cervix found to be 5 cm and mostly unchanged. Able to feel very small amount of presenting part but unable to determine consistency of that part. Station has changed since last exam and now -4. Ultrasound to bedside. Fetus verified vertex presentation. Pitocin off at this time due to recent decelerations. Tracing now category 1. Plan to pause the amnio infusion and proceed with epidural per pt request. Assisted patient to sitting on the side of the bed and able to trace FHTs externally. Will defer FSE for now. Recommend upright positioning after epidural when able. If tracing remains reassuring, we will restart Pitocin as needed to achieve adequate contraction pattern. Dr. Ha updated.
[2023-03-30 11:26] VITALS: BP 137/80; PULSE 82; RESP 18; TEMP 37.2; O2SAT 98
== END 2023-03-28 15:15 | disposition home or self-care (01) | DRG 807 ==
LOC: ANHLDR 22:13 → ANHOB2 03-27 01:30
PROVIDERS: Admitting Provider Obstetrics & Gynecology Gynecology; Visit Provider Obstetrics & Gynecology Gynecology
DX: O14.04 Mild to moderate pre-eclampsia, complicating childbirth (principal); Z37.0 Single live birth; Z3A.37 37 weeks gestation of pregnancy; O99.824 Streptococcus B carrier state complicating childbirth; O43.123 Velamentous insertion of umbilical cord, third trimester; O69.89X0 Labor and delivery complicated by other cord complications, not applicable or unspecified; O70.0 First degree perineal laceration during delivery; O71.82 Other specified trauma to perineum and vulva; O36.8330 Maternal care for abnormalities of the fetal heart rate or rhythm, third trimester, not applicable or unspecified
CPT/HCPCS: 36415; 80053; 84550; 85014; 85018; 85025; 86592; 86850; 86900; 86901; 88307; A9270; J0290; J2590; J7120

== ENCOUNTER 2025-07-03 11:45 | Outpatient (CLI) | payer BC, SELFPAY ==
--- NOTE | ~2025-07-03 | US_ITS ---
EXAM/PROCEDURE: US OB transvaginal HISTORY: Spotting 1st trimester COMPARISON: Follow-up TECHNIQUE: Directed exam performed for evaluating viability and dates. FINDINGS: The uterus measures 10.0 x 5.9 x 7.1 cm. Within the endometrial canal is a mildly complex fluid focus measuring 3.6 x 0.9 x 1.3 cm. A pole is not yet identifiable. Mean sac diameter 1.5 cm corresponds to EGA of 6 weeks 2 days by ultrasound. The ovaries are not seen. IMPRESSION: Limited examination demonstrating irregular appearance of possible gestational sac: No pole is yet identified. Correlate with follow-up quantitative hCG levels, and repeat pelvic ultrasound in 5-7 days or sooner if clinically appropriate. Reviewed, dictated and finalized at location A. INUM WELDER IMPRESSION: Limited examination demonstrating irregular appearance of possible gestational sac: No pole is yet identified. Correlate with follow-up aurora titative hCG levels, and repeat pelvic ultrasound in 5-7 days or sooner if clin ically appropriate.
== END 2025-07-03 11:46 | disposition home or self-care (01) ==
LOC: MICIMG 11:46
PROVIDERS: PCP Obstetrics & Gynecology Gynecology; Visit Provider Obstetrics & Gynecology Gynecology
DX: O26.851 Spotting complicating pregnancy, first trimester (principal); Z3A.00 Weeks of gestation of pregnancy not specified
CPT/HCPCS: 76817

== ENCOUNTER 2025-07-12 11:18 | Emergency (ER) | payer BC, SELFPAY ==
[2025-07-12] VITALS (12 sets, daily range): BP systolic 128–146; BP diastolic 55–79; PULSE 74–97; RESP 9–19; TEMP 37; O2SAT 97–100
[2025-07-12 12:04] LABS: Hematocrit 36.7 % (37.0-47.0); Hemoglobin 12.2 g/dL (12.0-15.0); Immature Granulocyte Percent A 0.3 % (0-0.5); Lymphocytes Absolute Auto 1.67 K/mm3 (0.9-3.2); Mean Corpuscular HGB Conc 33.2 g/dl (32-36); Mean Corpuscular Hemoglobin 30.6 pg (26-34); Mean Corpuscular Volume 92.0 fl (80-100); Nucleated Red Blood Cells Absolute Auto 0.000 K/mm3 (0.0-0.012); Nucleated Red Blood Cells Perc 0.0 % (0.0-0.2); Platelet Count Result 217 k/mm3 (150-375); Red Blood Count 3.99 M/mm3 (4.2-5.4); White Blood Count 12.1 K/mm3 (4.5-10.0)
[2025-07-12 12:16] LABS: INR 1.0; Prothrombin Time 12.9 Seconds (11.1-14.7)
[2025-07-12 12:22] LABS: Alanine Aminotransferase 18 U/L (6-35); Albumin Level 4.0 g/dL (3.5-5.1); Alkaline Phosphatase 66 U/L (38-126); Anion Gap 7 mmol/L (4-12); Aspartate Amino Transferase 20 U/L (14-36); Bilirubin,Total 0.4 mg/dL (0.2-1.3); Blood Urea Nitrogen 12 mg/dL (7-17); Calcium 8.9 mg/dL (8.4-10.2); Carbon Dioxide 25 mmol/L (22-30); Chloride 106 mmol/L (98-107); Estimated CRCL calculation 115 ml/min; Estimated Glomerular Filt Rate > 60; Glucose 103 mg/dL (65-110); Potassium 3.7 mmol/L (3.4-5.0); Sodium 138 mmol/L (137-145); Total Protein 7.3 g/dL (6.3-8.2)
--- NOTE | 2025-07-12 13:26 | PC.NURSE ---
Pelvic exam done with Dr Manuel, presiding RN's-Ngozi. No specimens obtained. Patient tolerated well.
--- NOTE | 2025-07-12 13:58 | ED_ITS ---
HPI - Female Genitourinary General Chief complaint: Vaginal Bleeding Stated complaint: VAG BLEEDING PREG Time Seen by Provider: 07/12/25 11:37 Source: patient Mode of arrival: ambulatory Limitations: no limitations History of Present Illness HPI Narrative: 45-year-old 15 para 9 A6 here with a complaints of heavy vaginal bleeding started day ago , she states had an ultrasound few days ago which showed no IUP , presently going through miscarriage. She states that she passed several clots earlier. Had a mild lower abdominal cramping. She denies being lightheaded or dizzy. She endorses Dr. Ha as her OB-[facility] Pertinent past history: prior miscarriages Onset (ago): day(s) (2) Severity: moderate Female Urogenital Radiation: Non-Radiating Quality of pain: cramping Consistency: constant Vaginal bleeding: heavy and clots Exacerbating factors: none Relieving factors: none Associated symptoms: abdominal pain Related Data Home Medications ?Medication ?Instructions ?Recorded ?Confirmed ?Last Taken ?Type ergocalciferol (vitamin D2) 1,000 1,000 unit PO DAILY 03/08/23 03/08/23 03/14/23 15:00 History unit capsule vits no.133-ferrous 1 tablet PO DAILY 3 03/08/23 03/14/23 15:00 History fumarate 28 mg-folic acid 800 mcg tablet () Allergies Allergy/AdvReac Type Severity Reaction Status Date / Time No Known Allergies Allergy Verified 07/12/25 11:32 Review of Systems 2 Review of Systems: All systems reviewed & are unremarkable except as noted in HPI and below Constitutional: Constitutional: Reports no additional constitutional complaints Eyes: Eyes: Reports no additional eye complaints ENT: Reports system reviewed and no additional complaints, except as documented Cardiovascular: Cardiovascular: Reports no additional cardiovascular complaints Respiratory: Respiratory: Reports no additional respiratory complaints Gastrointestinal: Gastrointestinal: Reports as per HPI Genitourinary: Genitourinary: Reports as per HPI Musculoskeletal: Musculoskeletal: Reports no additional musculoskeletal complaints Integumentary/Breasts: Skin/Breast: Reports system reviewed and no additional complaints, except as docu [facility] Family History Family History Other Patient denies significant medical history Social History Social History Smoking status: Never smoker Alcohol intake: never Substance use: never Living arrangements: with family Gender identity (if verbalized by the patient): Female Spiritual care concerns: No Exam 2 Narrative: GENERAL: Well-appearing, well-nourished, and in no acute distress. HEAD: Normocephalic, atraumatic. EYES: PERRLA and EOMI. ENT: Nares clear, no rhinorrhea or epistaxis. Mucous membranes moist. NECK: Supple. CHEST: Clear to auscultation. No respiratory distress. HEART: Regular rate and rhythm. No murmur heard. Normal peripheral pulses. ABDOMEN: Soft, nontender, nondistended, normal active bowel sounds. Pelvic , scant dark blood in the vaginal vault. EXTREMITIES: Normal range of motion. No edema. SKIN: Warm, dry, no rash. NEURO: No focal deficits. Alert and oriented x3. PSYCH: Normal mood and affect. Course Course Emergency Course: Notified patient about her lab was. Discussed with Dr. Ha recommended to follow-up in office. The patient does feel comfortable going home Vital Signs Vital signs: Vital Signs Temperature 37.0 C 07/12/25 11:28 Pulse Rate 97 07/12/25 11:28 Respiratory Rate 16 07/12/25 11:28 Blood Pressure 146/79 H 07/12/25 11:28 Pulse Oximetry 100 07/12/25 11:28 Oxygen Delivery Room Air 07/12/25 11:28 Temperature 37.0 C 07/12/25 11:28 Pulse Rate 86 07/12/25 12:46 Respiratory Rate 18 07/12/25 12:46 Blood Pressure 138/60 07/12/25 12:46 Pulse Oximetry 100 07/12/25 12:46 Oxygen Delivery Room Air 07/12/25 11:28 MDM - Female Genitourinary Lab Data 07/12/25 11:57 07/12/25 11:57 Labs: Lab Results 07/12/25 Range/Units 11:57 WBC 12.1 H (4.5-10.0) K/mm3 RBC 3.99 L (4.2-5.4) M/mm3 Hgb 12.2 (12.0-15.0) g/dL Hct 36.7 L (37.0-47.0) % MCV 92.0 (80-100) fl MCH 30.6 (26-34) pg MCHC 33.2 (32-36) g/dl RDW 12.5 (11.5-14.5) % Plt Count 217 (150-375) k/mm3 MPV 9.5 (7.4-10.4) fl Immature Gran % (Auto) 0.3 (0-0.5) % Neut % (Auto) 77.6 H (45.5-73.1) % Lymph % (Auto) 13.8 L (18.3-44.2) % [place] % (Auto) 5.5 (2.6-8.5) % Eos % (Auto) 2.5 (0-4.4) % Baso % (Auto) 0.3 (0.2-1.2) % Lymph # (Auto) 1.67 (0.9-3.2) K/mm3 [place] # (Auto) 0.7 H (0.1-0.6) K/mm3 Eos # (Auto) 0.3 (0-0.3) K/mm3 Baso # (Auto) 0.0 (0.0-0.1) K/mm3 Abs Immat Gran (auto) 0.04 H (0.00-0.031) K/mm3 Absolute Neuts (auto) 9.4 H (1.3-6.7) K/mm3 Absolute Nucleated RBC 0.000 (0.0-0.012) K/mm3 Nucleated RBC % 0.0 (0.0-0.2) % PT 12.9 (11.1-14.7) Seconds INR 1.0 Sodium 138 (137-145) mmol/L Potassium 3.7 (3.4-5.0) mmol/L Chloride 106 (98-107) mmol/L Carbon Dioxide 25 (22-30) mmol/L Anion Gap 7 (4-12) mmol/L BUN 12 (7-17) mg/dL Creatinine 0.55 L (0.7-1.0) mg/dL Estim Creat Clear Calc 115 ml/min Estimated GFR > 60 (59 - ) Glucose 103 (65-110) mg/dL Calcium 8.9 (8.4-10.2) mg/dL Total Bilirubin 0.4 (0.2-1.3) mg/dL AST 20 (14-36) U/L ALT 18 (6-35) U/L Alkaline Phosphatase 66 (38-126) U/L Total Protein 7.3 (6.3-8.2) g/dL Albumin 4.0 (3.5-5.1) g/dL Beta HCG, Quant 18974.00 mIU/ML Discharge Plan Discharge Clinical Impression: Miscarriage at 8 to 28 weeks gestation Patient Disposition: Home Condition: Stable Instructions: Miscarriage (ED) Additional Instructions: rest , drink more fluids, call Dr. Ha office for an appointment .Rpt lab work in 1 wk Patient Language: Samoan Prescriptions: No Action ergocalciferol (vitamin D2) 1,000 unit Capsule 1,000 unit PO DAILY 28-800 mg-mcg Tablet 1 tablet PO DAILY Follow-up/Referrals: Maritza Ha MD [Primary Care Provider, INSURANCE BUSINESS ANALYST] Time of Disposition: 14:00
== END 2025-07-12 14:28 | disposition home or self-care (01) ==
PROVIDERS: Emergency Provider Family Medicine; PCP Obstetrics & Gynecology Gynecology
DX: O03.9 Complete or unspecified spontaneous abortion without complication (principal)
CPT/HCPCS: 36415; 80053; 84702; 85025; 85610; 99283